=== PATIENT | male | born 1955 | race Caucasian/White ===

== ENCOUNTER 2019-11-03 07:58 | Day surgery (SDC) | payer OTHER ==
[2019-11-03] MEDS ORDERED: MORPHINE SULFATE/PF 10 MG/10ML (1MG/ML) AMPUL ONE (09:57)
[2019-11-03] MEDS ORDERED: EPINEPHRINE (1:1000) 1 MG/ML AMPUL ONE (09:58)
[2019-11-03] MEDS ORDERED: BUPIVACAINE MPF 0.5% W/EPI INJ 30 ML VIAL ONE (09:58)
[2019-11-03] MEDS ORDERED: MIDAZOLAM HCL 2 MG/2ML VIAL ONE (10:17)
[2019-11-03] MEDS ORDERED: HYDROCODONE/APAP 10/325MG 1 EA TABLET ONE (12:28)
== END 2019-11-03 13:30 | disposition home or self-care (01) ==
LOC: DS 07:58
PROVIDERS: ATTEND Orthopaedic Surgery
DX: M25.562 Pain in left knee (principal); S83.212A Bucket-handle tear of medial meniscus, current injury, left knee, initial encounter; X58.XXXA Exposure to other specified factors, initial encounter; Y93.89 Activity, other specified; Y92.89 Other specified places as the place of occurrence of the external cause; Y99.8 Other external cause status; M94.262 Chondromalacia, left knee; G47.33 Obstructive sleep apnea (adult) (pediatric)
CPT/HCPCS: 29881; 88304; 88311; A4217; A6253; J0171; J2250; J2274; J3490; J0690; J1100; J2001; J2704